=== PATIENT | female | born 1970 | race Two or more races ===

== ENCOUNTER 2022-10-16 14:20 | Emergency (ER) | payer OTHER ==
[~2022-10-16] VITALS: Ht 170.2 cm; Wt 85.7 kg
[2022-10-16] MEDS ORDERED: LEVOTHYROXINE13 MCG PO (15:05)
== END 2022-10-16 19:26 | disposition home or self-care (01) ==
LOC: ER 14:20
DX: R51.9 Headache, unspecified (principal); R20.2 Paresthesia of skin; Z20.822 Contact with and (suspected) exposure to COVID-19

== ENCOUNTER → 2022-10-17 | Emergency (ER) | payer OTHER ==
[~2022-10-17] VITALS: Ht 170.2 cm; Wt 85.7 kg
[~2022-10-17] MED LIST: LEVOTHYROXINE13 MCG PO
== END | disposition home or self-care (01) ==
LOC: ER 14:36
DX: H81.10 Benign paroxysmal vertigo, unspecified ear (principal); M79.7 Fibromyalgia